=== PATIENT | male | born 1940 | race Caucasian/White ===

== ENCOUNTER 2019-06-08 14:03 | Emergency (ER) | payer MEDICARE, BC ==
[~2019-06-08] VITALS: Ht 172.7 cm; Wt 65.9 kg
[2019-06-08 15:55] VITALS: BP 100/67
[2019-06-08] MEDS ORDERED: DOCU-171 PO (17:20)
== END 2019-06-08 17:55 | disposition home or self-care (01) ==
LOC: ER 14:04
DX: T83.89XA Other specified complication of genitourinary prosthetic devices, implants and grafts, initial encounter (principal); N99.524 Stenosis of incontinent stoma of urinary tract; G82.20 Paraplegia, unspecified; Z98.890 Other specified postprocedural states; Z79.899 Other long term (current) drug therapy; Y84.9 Medical procedure, unspecified as the cause of abnormal reaction of the patient, or of later complication, without mention of misadventure at the time of the procedure; Y92.89 Other specified places as the place of occurrence of the external cause
CPT/HCPCS: 74018; 99284